=== PATIENT | female | born 1945 | race Caucasian/White ===

== ENCOUNTER 2023-05-05 14:00 | Emergency (ER) | payer MEDICARE, OTHER ==
--- NOTE | 2023-05-05 14:22 | ED ---
Upper Extremity HPI - General Chief Complaint: Extremity Injury, Upper Stated Complaint: rt shoulder fall Time Seen by Provider: 05/05/23 14:21 Source: patient Mode of arrival: ambulatory Limitations: no limitations - History of Present Illness Initial Comments: Is an 78-year-old female presenting with complaint of pain in the right shoulder. Patient has a history of shoulder replacement 2 in affected shoulder showed a trip and fall yesterday landing on the shoulder has bruising over the collarbone down to the chest. Pain is worse with active range of motion. Complaint: Injury to:: right, shoulder Onset/Timin -: days(s) Other Injuries: none Place: home Worsens With: movement of extremity Context: fall Associated Symptoms: denies other symptoms Treatments Prior to Arrival: cold therapy - Related Data Allergies Allergy/AdvReac Type Severity Reaction Status Date / Time No Known Allergies Allergy Verified 05/05/23 14:12 Review of Systems ROS Statement: Those systems with pertinent positive or pertinent negative responses have been documented in the HPI. ROS Other: All systems not noted in ROS Statement are negative. Past Medical History Past Medical History: Coronary Artery Disease (CAD), Cancer, Heart Failure, CVA/TIA, Hypertension History of Any Multi-Drug Resistant Organisms: None Reported Past Surgical History: Heart Catheterization, Joint Replacement Additional Past Surgical History / Comment(s): mastectomy Smoking Status: Never smoker Past Alcohol Use History: None Reported Past Drug Use History: None Reported General Exam - General Exam Comments Initial Comments: Physical Exam GENERAL: Patient is well-developed and well-nourished. Patient is nontoxic and well-hydrated and is in no distress. HENT: Normocephalic, Atraumatic. EYES: PERRL, EOMI PULMONARY: Unlabored respirations. CARDIOVASCULAR: RRR Warm and well perfused extremities ABDOMEN: Non-distended SKIN: Bruising over the collarbone to the sternum : Deferred NEUROLOGIC: Alert and oriented Normal speech Normal gait MUSCULOSKELETAL: Abduction of the right shoulder is limited patient reports this is chronic, no pain with passive range of motion PSYCHIATRIC: No SI/HI Limitations: no limitations Course Vital Signs 05/05/23 14:08 Temperature 98.5 F Pulse Rate 74 Respiratory 20 Rate Blood Pressure 181/74 O2 Sat by Pulse 98 Oximetry Medical Decision Making - Medical Decision Making The patient was seen and evaluated, history is obtained from the patient, x-rays were obtained and I reviewed the x-rays myself I suspect there is a proximal clavicle fracture that is nondisplaced. Radiologist also believes there may be rib fractures. Patient was placed in a sling and given Lidoderm patches she declined any narcotic pain medication. Patient states she has a follow-up of 0.[address] surgeon Dr. Geiger in [place] on Monday. Was pt. sent in by a medical professional or institution (, [facility], [facility], urgent care, hospital, or fpc...) When possible be specific @ -No Did you speak to anyone other than the patient for history (EMS, parent, family, police, friend...)? What history was obtained from this source @ -No Did you review nursing and triage notes (agree or disagree)? Why? @ -I reviewed and agree with nursing and triage notes Were old charts reviewed (outside hosp., previous admission, EMS record, old EKG, old radiological studies, urgent care reports/EKG's, fpc records)? Report findings @ -No old charts were reviewed Differential Diagnosis (chest pain, altered mental status, abdominal pain women, abdominal pain men, vaginal bleeding, weakness, fever, dyspnea, syncope, headache, dizziness, GI bleed, back pain, seizure, CVA, palpatations, mental health, musculoskeletal)? @ -fracture, dislocation, contusion EKG interpreted by me (3pts min.). @ -As above X-rays interpreted by me (1pt min.). @ -Shoulder x-ray and clavicle x-ray is interpreted by me with no evidence of dislocation possible clavicle fracture CT interpreted by me (1pt min.). @ -None done U/S interpreted by me (1pt. min.). @ -None done What testing was considered but not performed or refused? (CT, X-rays, U/S, labs)? Why? @ -CT scan can be performed but not indicated today What meds were considered but not given or refused? Why? @ -Narcotic analgesia was offered and declined Did you discuss the management of the patient with other professionals (professionals i.e. [facility], [facility], lab, RT, psych nurse, home health care social worker, nuclear worker technician, teacher, crime prevention police officer, manager case management)? Give summary @ -No Was smoking cessation discussed for >3mins.? @ -No Was critical care preformed (if so, how long)? @ -No Were there social determinants of health that impacted care today? How? (Homelessness, low income, unemployed, alcoholism, drug addiction, transportation, low edu. Level, literacy, decrease access to med. care, detention, rehab)? @ -No Was there de-escalation of care discussed even if they declined (Discuss DNR or withdrawal of care, Hospice)? DNR status @ -No What co-morbidities impacted this encounter? (DM, HTN, Smoking, COPD, CAD, Cancer, CVA, ARF, Chemo, Hep., AIDS, mental health diagnosis, sleep apnea, morbid obesity)? @ -None Was patient admitted / discharged? Hospital course, mention meds given and route, prescriptions, significant lab abnormalities, going to OR and other pertinent info. @ -Discharge Undiagnosed new problem with uncertain prognosis? @ -No Drug Therapy requiring intensive monitoring for toxicity (Heparin, Nitro, Insulin, Cardizem)? @ -No Were any procedures done? @ -No Diagnosis/symptom? @ -Clavicle fracture, rib fracture Acute, or Chronic, or Acute on Chronic? @ -Acute Uncomplicated (without systemic symptoms) or Complicated (systemic symptoms)? @ -Complicated Side effects of treatment? @ -No Exacerbation, Progression, or Severe Exacerbation? @ -No Poses a threat to life or bodily function? How? (Chest pain, [place], [place], pneumonia, PE, COPD, DKA, ARF, appy, cholecystitis, CVA, Diverticulitis, Homicidal, Suicidal, threat to staff... and all critical care pts) @ -No Disposition Clinical Impression: Right rib fracture, Right clavicle fracture, Fall at home Disposition: HOME SELF-CARE Condition: Stable Instructions (If sedation given, give patient instructions): Clavicle Fracture (DC), Rib Fracture (ED) Is patient prescribed a controlled substance at d/c from ED?: No Referrals: Mariza Boyd MD [Primary Care Provider] - 1-2 days Mikey Barkley DO [REFERRING] - 1-2 days
--- NOTE | 2023-05-05 15:11 | XR ---
EXAMINATION TYPE: XR shoulder complete RT DATE OF EXAM: 05/05/2023 COMPARISON: NONE TECHNIQUE: 3 views submitted HISTORY: Pain FINDINGS: There is a prosthetic right shoulder in near anatomic alignment. There is a chronic-appearing lung d isease. Diffuse osteopenia and AC joint arthropathy. No definite acute fracture. Deformities involving the anterolateral margin of the right third and fourth ribs. IMPRESSION: 1. AC joint arthropathy and postsurgical change. 2. Findings suspicious for anterior lateral rib fractures right third and fourth ribs. 3. There is airspace disease within the visualized right lung.
--- NOTE | 2023-05-05 15:14 | XR ---
EXAMINATION TYPE: XR clavicle RT DATE OF EXAM: 05/05/2023 COMPARISON: NONE HISTORY: Pain TECHNIQUE: 2 FINDINGS: Diffuse osteopenia. There is AC joint arthropathy. Postsurgical change right shoulder. The visualized clavicle intact. Medial clavicle not well seen cannot exclude a subtle step off. IMPRESSION: 1. There is a slight deformity along the medial margin of the right clavicle may be on the basis of a mildly displaced fracture correlate with point tenderness. This area is not well seen by standard x- ray. 2. AC joint arthropathy. 3. Chronic appearing airspace disease within the right lung. 4. Subtle deformities involving the anterior margin of the right third and fourth rib suspicious for fractures.
[2023-05-05] MEDS ORDERED: LIDOCAINE 5% PATCH TOPICAL STA (15:20)
[2023-05-05 15:57] VITALS: BP 139/72; PULSE 65; RESP 16; TEMP 97.9
== END 2023-05-05 15:57 | disposition home or self-care (01) ==
LOC: EC 14:00
DX: S22.31XA Fracture of one rib, right side, initial encounter for closed fracture (principal); S42.001A Fracture of unspecified part of right clavicle, initial encounter for closed fracture; I11.0 Hypertensive heart disease with heart failure; I25.10 Atherosclerotic heart disease of native coronary artery without angina pectoris; I50.9 Heart failure, unspecified; W01.0XXA Fall on same level from slipping, tripping and stumbling without subsequent striking against object, initial encounter; Y92.009 Unspecified place in unspecified non-institutional (private) residence as the place of occurrence of the external cause
CPT/HCPCS: 99283